=== PATIENT | male | born 2000 | race Caucasian/White ===

== ENCOUNTER 2020-12-30 13:00 | Observation (INO) | payer BC ==
[~2020-12-30] VITALS: Ht 177.8 cm; Wt 72.1 kg
[2020-12-30] VITALS (17 sets, daily range): BP systolic 102–132; BP diastolic 56–83
[2020-12-30] MEDS ORDERED: normal saline 1000ML IV soln IVB ONE (13:20)
[2020-12-30] MEDS ORDERED: ondansetron/PF 4mg/2ml inj IV ONE ×2 (13:20→15:10)
[2020-12-30 13:45] LABS: BASOPHILS % (AUTO) 0.1 % (0-1); EOSINOPHILS % (AUTO) 0.1 % (0-6); HEMATOCRIT 45.2 % (42.0-52.0); HEMOGLOBIN 15.9 g/dl (14.0-17.9); LYMPHOCYTES # (AUTO) 0.8 X10'3 (1.1-4.8); LYMPHOCYTES % (AUTO) 5.2 % (21-51); MEAN CORPUSCULAR HEMOGLOBIN 31.2 PG (27.0-31.0); MEAN CORPUSCULAR HGB CONC 35.2 g/dL (33.0-36.5); MEAN CORPUSCULAR VOLUME 88.8 FL (78-98); MEAN PLATELET VOLUME 8.5 FL (7.4-10.4); MONOCYTES # (AUTO) 1.2 X10'3 (0-0.9); MONOCYTES % (AUTO) 7.2 % (2-12); NEUTROPHILS # (AUTO) 14.1 X10'3 (1.8-7.7); NEUTROPHILS % (AUTO) 87.4 % (42-75); PLATELET COUNT 229 X10'3 (140-440); RED BLOOD COUNT 5.09 X10'6 (4.70-6.10); RED CELL DISTRIBUTION WIDTH 12.3 % (11.5-14.5); WHITE BLOOD COUNT 16.1 X10'3 (4.5-11.0)
[2020-12-30 13:59] LABS: ALANINE AMINOTRANSFERASE 108 U/L (12-78); ALBUMIN 4.7 G/DL (3.4-5.0); ALBUMIN/GLOBULIN RATIO 1.3 (1.1-1.5); ALKALINE PHOSPHATASE 79 IU/L (20-180); ANION GAP 13 (8-16); ASPARTATE AMINO TRANSFERASE 37 U/L (10-37); BLOOD UREA NITROGEN 14 MG/DL (7-18); BUN/CREATININE RATIO 11.8 (5.4-32.0); CALCIUM 9.9 MG/DL (8.5-10.1); CHLORIDE 99 MMOL/L (99-107); CREATININE 1.19 MG/DL (0.60-1.10); GLUCOSE 116 MG/DL (70-104); LIPASE 119 U/L (73-393); POTASSIUM 3.6 MMOL/L (3.5-5.1); SODIUM 138 MMOL/L (135-145); TOTAL CARBON DIOXIDE 26.1 MMOL/L (24-32); TOTAL PROTEIN 8.3 G/DL (6.4-8.2); eGFR 78 ML/MIN
[2020-12-30] MEDS ORDERED: piperacillin/tazo 3.375gm/50ml 50 ML IV ONE (14:25)
[2020-12-30] MEDS ORDERED: normal saline 1000ML IV soln IV ONE (14:25)
[2020-12-30] MEDS ORDERED: iohexol 350MG/ML 100ml bottle IV ONE (14:59)
[2020-12-30] MEDS ORDERED: morphine 4 MG/ML inj SYRINge IV PRN ×2 (15:10→16:30)
[2020-12-30 15:17] LABS: CLARITY,URINE CLEAR (Clear); COLOR,URINE YELLOW (Yellow); PH,URINE 8.5 (4.8-8.0); PROTEIN,URINE TRACE mg/dl (Neg); UA COLLECTION TYPE CLN CATCH MIDSTREAM
[2020-12-30 15:18] LABS: GLUCOSE, URINE NEGATIVE (Neg); KETONES,URINE 80 mg/dl (Neg); LEUKOCYTE ESTERASE ,URINE NEGATIVE (Neg); NITRITES, URINE NEGATIVE (Neg); OCCULT BLOOD,URINE NEGATIVE (Neg); UROBILINOGEN,URINE 0.2 E.U/dL (0.2-1.0)
[2020-12-30 15:28] LABS: BACTERIA,URINE NONE SEEN /HPF (Neg); MUCUS STRANDS FEW /LPF (Neg); RBC,URINE NONE SEEN /HPF (0-2); SQUAMOUS EPITHELIAL CELL,UR FEW /LPF (FEW); WBC,URINE 0-4 /HPF (0-4)
[2020-12-30] MEDS ORDERED: NO HOME MEDS (16:01)
[2020-12-30] MEDS ORDERED: morphine 2 MG/ML inj. syringe IV PRN ×3 (16:30→18:20)
[2020-12-30] MEDS ORDERED: ondansetron/PF 4mg/2ml inj IV PRN ×3 (16:30→18:20)
[2020-12-30] MEDS ORDERED: ringers solution, lacted 1,000 ML IV SCH (16:30)
[2020-12-30] MEDS ORDERED: meperidine/PF 25mg/ml syringe IV PRN ×3 (16:30)
[2020-12-30] MEDS ORDERED: proCHLORperazine 10 MG/2 ml inj IV PRN (16:30)
[2020-12-30] MEDS ORDERED: midazolam 1 mg/ML 2ml injection ONE (16:48)
[2020-12-30] MEDS ORDERED: fentaNYL/PF 50MCG/1 ML 2ML syringe ONE (16:48)
[2020-12-30] MEDS ORDERED: LIDOcaine 2% (20mg/ml) 5ml vial ONE (16:48)
[2020-12-30] MEDS ORDERED: propofol inj 20 ML IV ONE (16:48)
[2020-12-30] MEDS ORDERED: rocuronium 10mg/ml inj IV ONE (16:49)
[2020-12-30] MEDS ORDERED: BUPIVAcaine 0.5% inj/PF 30 ML ONE (16:57)
[2020-12-30] MEDS ORDERED: sevoflurane 250ml liquid IH ONE (17:08)
[2020-12-30] MEDS ORDERED: dexamethasone sod phosphate 10mg/ml inj ONE (17:08)
[2020-12-30] MEDS ORDERED: ondansetron/PF 4mg/2ml inj ONE (17:30)
[2020-12-30] MEDS ORDERED: meperidine/PF 25mg/ml syringe ONE (17:54)
[2020-12-30] MEDS ORDERED: ketorolac trometh. 30mg/ml inj. IV PRN (18:20)
[2020-12-30] MEDS ORDERED: potassium Cl 40MEQ/1/2NS 520ml 520 ML IV PRN ×2 (18:20)
[2020-12-30] MEDS ORDERED: diphenhydrAMINE 25mg capsule PO PRN (18:20)
[2020-12-30] MEDS ORDERED: mag hydrox/Alum hydrox/simeth 30ml oral suspension PO PRN (18:20)
[2020-12-30] MEDS ORDERED: acetaminophen 650mg rectal suppository RC PRN (18:20)
[2020-12-30] MEDS ORDERED: HYDROcodone/acetaminophen 10/325mg tab PO PRN ×2 (18:20)
[2020-12-30] MEDS ORDERED: acetaminophen 325mg tablet PO PRN ×2 (18:20)
[2020-12-30] MEDS ORDERED: magnesium 2GM in 50ml NS 50 ML IV PRN (18:20)
[2020-12-30] MEDS ORDERED: magnesium Cl slow-release 64mg tablet PO PRN (18:20)
[2020-12-30] MEDS ORDERED: HYDROcodone/acetaminophen 5mg/325mg tablet PO PRN (18:20)
[2020-12-30] MEDS ORDERED: potassium Cl 20 mEq SR tablet PO PRN ×2 (18:20)
[2020-12-30] MEDS ORDERED: magnesium hydroxide 30ml (MOM) UD suspension PO PRN (18:20)
[2020-12-30] MEDS ORDERED: bisacodyl 10mg suppository rectal RC PRN (18:20)
[2020-12-30] MEDS ORDERED: magnesium 4gm in 100ml NS 100 ML IV PRN (18:20)
--- NOTE | 2020-12-30 18:26 | NUR ---
Received from OR via , accompanied by Anesthesiologist DR JERONIMO and report given by Anesthesiolgist. PT PRESENTS WITH 20G RIGHT AC. ABD DRESSING DRY AND INTACT. VSS. Addendum: 12/30/20 at 1833 by Erin Velázquez RN, RN Amended: Links added.
--- NOTE | 2020-12-30 19:36 | NUR ---
Report called to receiving nurse DIANN PALMER. Transferred via [facility]OSPITAL BED TO ROOM 351 WITH 1 BAG OF PT Belongings , VSS.. Addendum: 12/30/20 at 1947 by Erin Velázquez RN, RN Amended: Links added.
--- NOTE | 2020-12-30 19:45 | NUR ---
Received pt from [facility], Received report. Pt A&O, VSS no c/o pain lap sites with bandaides cd&I. BS hypoactive, lungs clear. No c/o n/v csm wnl, scd's on, is at bedside. Ice and water given, call light in reach. Oriented to room and routine. Addendum: 12/30/20 at 2017 by Pari Arechiga RN Amended: Links added.
--- NOTE | 2020-12-30 20:17 | NUR ---
vss no complaints. Addendum: 12/30/20 at 2018 by Pari Arechiga RN Amended: Links added.
[2020-12-30] MEDS: docusate sod 100mg capsule PO SCH (21:45)
[2020-12-30] MEDS: normal saline 1000ml 1,000 ML IV SCH (21:46)
[2020-12-30] MEDS: K and/or MAG REPLACEMENT MC SCH (21:47)
[2020-12-31] MEDS: piperacillin/tazo 3.375gm/50ml 50 ML IV SCH ×2 (00:03→07:25)
[2020-12-31] MEDS: normal saline 1000ml 1,000 ML IV SCH (00:12)
[2020-12-31 00:37] VITALS: BP 116/59
[2020-12-31 04:38] VITALS: BP 111/55
--- NOTE | 2020-12-31 05:02 | NUR ---
LAP SITES CD&I Addendum: 12/31/20 at 0503 by Pari Arechiga RN Amended: Links added.
--- NOTE | 2020-12-31 06:14 | NUR ---
Problems reprioritized. Patient report given, questions answered & plan of care reviewed with SPENCER HAM. Addendum: 12/31/20 at 0614 by Pari Arechiga RN Amended: Links added.
[2020-12-31 06:30] LABS: BASOPHILS % (AUTO) 0.1 % (0-1); EOSINOPHILS % (AUTO) 0 % (0-6); HEMATOCRIT 39.7 % (42.0-52.0); HEMOGLOBIN 13.8 g/dl (14.0-17.9); LYMPHOCYTES % (AUTO) 6.6 % (21-51); MEAN CORPUSCULAR HEMOGLOBIN 31.1 PG (27.0-31.0); MEAN CORPUSCULAR HGB CONC 34.8 g/dL (33.0-36.5); MEAN CORPUSCULAR VOLUME 89.2 FL (78-98); MEAN PLATELET VOLUME 9.1 FL (7.4-10.4); MONOCYTES # (AUTO) 0.8 X10'3 (0-0.9); MONOCYTES % (AUTO) 4.9 % (2-12); NEUTROPHILS # (AUTO) 13.8 X10'3 (1.8-7.7); NEUTROPHILS % (AUTO) 88.4 % (42-75); PLATELET COUNT 201 X10'3 (140-440); RED BLOOD COUNT 4.45 X10'6 (4.70-6.10); RED CELL DISTRIBUTION WIDTH 12.5 % (11.5-14.5); WHITE BLOOD COUNT 15.6 X10'3 (4.5-11.0)
[2020-12-31 06:35] LABS: ALANINE AMINOTRANSFERASE 72 U/L (12-78); ALBUMIN 3.6 G/DL (3.4-5.0); ALBUMIN/GLOBULIN RATIO 1.2 (1.1-1.5); ALKALINE PHOSPHATASE 64 IU/L (20-180); ANION GAP 11 (8-16); ASPARTATE AMINO TRANSFERASE 23 U/L (10-37); BILIRUBIN,TOTAL 1.2 MG/DL (0.1-1.0); BLOOD UREA NITROGEN 12 MG/DL (7-18); BUN/CREATININE RATIO 10.9 (5.4-32.0); CALCIUM 8.6 MG/DL (8.5-10.1); CHLORIDE 105 MMOL/L (99-107); GLUCOSE 140 MG/DL (70-104); MAGNESIUM 2.1 MG/DL (1.5-2.4); PHOSPHORUS 3.9 MG/DL (2.3-4.5); POTASSIUM 4.2 MMOL/L (3.5-5.1); SODIUM 142 MMOL/L (135-145); TOTAL CARBON DIOXIDE 26.1 MMOL/L (24-32); TOTAL PROTEIN 6.7 G/DL (6.4-8.2); eGFR 85 ML/MIN
--- NOTE | 2020-12-31 06:40 | NUR ---
Patient in room [facility]. I have received report from Johana PALMER and had the opportunity to ask questions and assume patient care.
[2020-12-31] MEDS: docusate sod 100mg capsule PO SCH (07:07)
[2020-12-31] MEDS: K and/or MAG REPLACEMENT MC SCH (07:26)
[2020-12-31 08:00] VITALS: BP 120/65
[2020-12-31 11:00] VITALS: BP 117/73
--- NOTE | 2020-12-31 14:10 | NUR ---
Pt DC to home with family, pt is A & O x4 and in no apparent distress. pt verbalizes understanding of all DC orders and understands the importance of all DC orders and following up with PCP and Dr Still. pt has active Bowel sounds and is passing gas. Pt states his father is a PA and he will be watching him. pt advised to have light duty the next two weeks. pt's IC removed intact. Pt walked to the front where his family took him home. Addendum: 12/31/20 at 1624 by Brittney Kim RN Walked to the front with a student.
== END 2020-12-31 14:09 | disposition home or self-care (01) ==
LOC: ER 13:01 → ED HOLD 18:21 → SUR 3N 19:40
PROVIDERS: ADMIT Family Medicine; ATTEND Family Medicine
DX: K35.80 Unspecified acute appendicitis (principal); Z20.822 Contact with and (suspected) exposure to COVID-19
CPT/HCPCS: 36415; 44970; 74177; 76700; 80053; 81001; 83690; 83735; 84100; 84145; 85025; 87081; 87635; 96361; 96365; 96366; 96375; 99285; C9803; G0378; J1100; J2001; J2175; J2250; J2270; J2405; J2543; J2704; J3010; J7030; Q9967; A4215; A4314; A4618; A7000